=== PATIENT | female | born 1990 | race Caucasian/White ===

== ENCOUNTER 2018-12-19 13:27 | Inpatient (IN) | payer BC ==
[2018-12-19 14:17] LABS: APPEARANCE,URINE CLOUDY; BILIRUBIN,URINE NEGATIVE (NEGATIVE); COLOR,URINE RED; GLUCOSE, URINE 50 mg/dL (NEGATIVE); KETONES,URINE TRACE mg/dL (NEGATIVE); LEUKOCYTE ESTERASE,URINE NEGATIVE (NEGATIVE); NITRITE,URINE NEGATIVE (NEGATIVE); PROTEIN,URINE 100 mg/dL (NEGATIVE); URINE SPECIFIC GRAVITY 1.019; UROBILINOGEN,URINE NEGATIVE mg/dL (<2.0)
[2018-12-19 14:46] LABS: URINE AMPHETAMINES SCREEN NEGATIVE; URINE BARBITURATES SCREEN NEGATIVE; URINE BENZODIAZEPINES SCREEN NEGATIVE; URINE COCAINE SCREEN NEGATIVE; URINE MARIJUANA (THC) SCREEN NEGATIVE; URINE METHADONE SCREEN NEGATIVE; URINE PHENCYCLIDINE SCREEN NEGATIVE
[2018-12-19 15:11] LABS: ABSOLUTE EOSINOPHILS # (AUTO) 0.1 10^3/uL (0.0-0.6); ABSOLUTE LYMPHOCYTES (AUTO) 1.4 10^3/uL (0.5-4.7); ABSOLUTE MONOCYTES (AUTO) 0.6 10^3/uL (0.1-1.4); ABSOLUTE NEUT (AUTO) 6.2 10^3/uL (1.7-8.2); BASOPHILS % (AUTO) 0.5 % (0-2); EOSINOPHILS % (AUTO) 0.7 % (0-6); HEMOGLOBIN 13.3 g/dL (12.0-15.5); LYMPHOCYTES % (AUTO) 16.4 % (13-45); MEAN CORPUSCULAR HEMOGLOBIN 31.5 pg (27.0-33.4); MEAN CORPUSCULAR HGB CONC 34.9 g/dL (32.0-36.0); MEAN CORPUSCULAR VOLUME 90 fl (80-97); MONOCYTES % (AUTO) 7.7 % (3-13); PLATELET COUNT 144 10^3/uL (150-450); RED BLOOD COUNT 4.21 10^6/uL (3.72-5.28); RED CELL DISTRIBUTION WIDTH 13.3 % (11.5-14.0); SEGMENTED NEUTROPHILS % (AUTO) 74.7 % (42-78); TOTAL CELLS COUNTED % (AUTO) 100 %; WHITE BLOOD COUNT 8.3 10^3/uL (4.0-10.5)
[2018-12-19] MEDS ORDERED: EPHEDRINE SULFATE INJ 50 MG/1 ML AMPULE ONE (15:28)
[2018-12-19] MEDS ORDERED: FENTANYL CITRATE INJ/PF 100 MCG/2 ML AMPUL ONE (15:28)
[2018-12-19] MEDS ORDERED: MISOPROSTOL 0.2 MG TABLET ONE (15:28)
[2018-12-19] MEDS ORDERED: PHENYLEPHRINE HCL INJ/PF 10 MG/1 ML SDV ONE (15:28)
[2018-12-19] MEDS ORDERED: BUPIVACAINE HCL 0.25 % INJ/PF (2.5 MG/1 ML) 30 ML VIAL ONE (15:29)
[2018-12-19] MEDS ORDERED: OXYTOCIN/NORMAL SALINE 20 UNIT/1,000 ML RTUINJ ONE (15:29)
[2018-12-19] MEDS ORDERED: LIDOCAINE 1% INJ-PF (10 MG/ML) 30 ML SDV ONE (15:29)
[2018-12-19] MEDS ORDERED: FENTANYL/BUPIVACAINE/NS/PF 300 MCG/150 ML RTUINJ EPI ONE (15:29)
[2018-12-19] MEDS ORDERED: RINGERS SOLUTION 1,000 ML IV PRN ×2 (15:30)
--- NOTE | 2018-12-19 15:56 | Admission Physical ---
Datetime Report Generated by CPN: 12/19/2018 15:56 CURRENT ADMISSION Chief Complaint: Uterine Contractions Indication for Induction: Not Applicable Admit Impression : Term, Intrauterine ; Active Labor Admit Plan: Admit to Unit; Initiate Labor Protocol ALLERGIES Medication Allergies: No Medication Allergies: shellfish derived/SV/Anaphylaxis (12/19/2018) Latex: No Latex Allergies Food Allergies: Shellfish--anaphylaxis Environmental Allergies: Seasonal OBSTETRICAL HISTORY EDC: 12/28/2018 00:00 : 1 Para: 0 Term: 0 : 0 SAB: 0 IAB: 0 Ectopic: 0 Livin Cesareans: 0 VBACs: 0 Multiple Births: 0 Gestational Diabetes: No Rh Sensitization: No Incompetent Cervix: No SANDRA: No Infertility: No ART Treatment: No Uterine Anomaly: No IUGR: No Hx Previous C/S: No Macrosomia: No Hx Loss/Stillborn: No PIH: No Hx : No Placenta Previa/Abruption: No Depression/PP Depression: No PTL/PROM: No Post Hemorrhage: No Current Procedures: Ultrasound Obstetrical History Comments: G1 current SEE RECORDS Alcohol: No Marijuana : No Cocaine: No Other Illicit Drugs: No Cigarettes: Never Smoker. [id number] MEDICAL HISTORY Diabetes: No Blood Transfusion: No Pulmonary Disease (Asthma, TB): Yes Breast Disease: No Hypertension: No Tube Backer Surgery: No Heart Disease: No Hosp/Surgery: No Autoimmune Disorder: No Anesthetic Complications: No Kidney Disease: No Abnormal Pap Smear: No Neuro/Epilepsy: No Psychiatric Disorders: No Other Medical Diseases: No Hepatitis/Liver Disease: No Significant Family History: No Varicosities/Phlebitis: No Trauma/Violence : No Thyroid Dysfunction: No Medical History Comments: pt with R hip abnormality INFECTIOUS HISTORY Gonorrhea: No Genital Herpes: No Chlamydia: No Tuberculosis: No Syphilis: No Hepatitis: No HIV/AIDS Exposure: No Rash or Viral Illness: No HPV: No PHYSICAL EXAM General: Normal HEENT: Normal Neurologic: Normal Thyroid: Normal Heart: Normal Lungs: Normal Breast: Deferred Back: Normal Abdomen: Normal Genitourinary Exam: Normal Extremities: Normal DTRs: Normal Pelvic Type: Adequate Vital Signs: Reviewed VAGINAL EXAM Dilatation: 4 Effacement: 90 Station: -1 MEMBRANES Membranes: Intact FETUS A EGA: 38.5 Monitoring: External US FHR- Baseline: 120 Variability: Moderate 6-25bpm Decelerations: None FHR Category: Category I Admit Comment: admit and may have epidural INFORMED CONSENT Signature: with User ID: [email or web address]
[2018-12-19] MEDS ORDERED: FENTANYL CITRATE INJ/PF 100 MCG/2 ML AMPUL EPI ONE (16:25)
[2018-12-19] MEDS ORDERED: BENZOIN/ALOE VERA/STORAX/TOLU TINCTURE 60 ML TP PRN (16:32)
[2018-12-19] MEDS ORDERED: EPHEDRINE SULFATE INJ 50 MG/1 ML AMPULE IV PRN (16:32)
[2018-12-19] MEDS ORDERED: FENTANYL/BUPIVACAINE/NS/PF 200 MCG/100 ML RTUINJ EPI PRN (16:32)
[2018-12-19] MEDS ORDERED: BUPIVACAINE HCL 0.25 % INJ/PF (2.5 MG/1 ML) 30 ML VIAL INFIL ONE (16:32)
[2018-12-19] MEDS ORDERED: DIPHENHYDRAMINE HCL 25 MG CAPSULE PO PRN (21:44)
[2018-12-19] MEDS ORDERED: PROMETHAZINE HCL INJ 25 MG/1 ML VIAL IV PRN (21:44)
[2018-12-19] MEDS ORDERED: BENZOCAINE/MENTHOL AEROSOL SPRAY 56 ML TOP PRN (21:44)
[2018-12-19] MEDS ORDERED: NA PHOS,M-B/NA PHOS,DI-BA (ADULT) 133 ML ENEMA PR PRN (21:44)
[2018-12-19] MEDS ORDERED: MEASLES,MUMPS&RUBELLA VACC/PF 0.5 ML VIAL SUBCUT PRN (21:44)
[2018-12-19] MEDS ORDERED: PSEUDOEPHEDRINE HCL 30 MG TABLET PO PRN (21:44)
[2018-12-19] MEDS ORDERED: OXYTOCIN/NORMAL SALINE 20 UNIT/1,000 ML RTUINJ IV PRN (21:44)
[2018-12-19] MEDS ORDERED: ACETAMINOPHEN 650 MG SUPP.RECT PR PRN (21:44)
[2018-12-19] MEDS ORDERED: GLYCERIN/WITCH HAZEL LEAF 1 EACH MED..WIPE TP PRN (21:44)
[2018-12-19] MEDS ORDERED: PROMETHAZINE HCL 25 MG SUPP.RECT PR PRN (21:44)
[2018-12-19] MEDS ORDERED: DIBUCAINE 1% OINTMENT 56 GM TP PRN (21:44)
[2018-12-19] MEDS ORDERED: MAGNESIUM HYDROXIDE SUSP 30 ML UDCUP PO PRN (21:44)
[2018-12-19] MEDS ORDERED: DIPH/PERTUSS(ACELL)/TETANUS VAC/PF 0.5 ML SYR (>=10YO) IM PRN (21:44)
[2018-12-19] MEDS ORDERED: PROMETHAZINE HCL 25 MG TABLET PO PRN (21:44)
[2018-12-19] MEDS ORDERED: ACETAMINOPHEN WITH CODEINE #3 TABLET PO PRN ×2 (21:44)
[2018-12-19] MEDS ORDERED: ZOLPIDEM TARTRATE 5 MG TABLET PO PRN (21:44)
[2018-12-20] MEDS: IBUPROFEN 800 MG TABLET PO SCH ×4 (00:04→21:08)
[2018-12-20] MEDS: FAMOTIDINE 20 MG TABLET PO SCH ×3 (00:05→21:08)
--- NOTE | 2018-12-20 00:23 | Delivery Summary ---
Del Sum A-C Datetime Report Generated by CPN: 12/20/2018 00:22 DELIVERY PERSONNEL DELIVERY PERSONNEL: [id number] Delivery Doctor:: Noel Baker MD Labor and Delivery Nurse:: Ronel Ellington, cashier Nurse:: Vandana Rodriguez, ERVIN MATERNAL INFORMATION Delivery Anesthesia: Epidural Medications After Delivery: Pitocin Drip 20 Units/1000ml NSS; Cytotec 1000mcg Per Rectum/Vagina Delivery QBL: 50 Maternal Complications: None LABOR SUMMARY EDC: 12/28/2018 00:00 No. Babies in Womb: 1 Attempted: No Labor Anesthesia: Epidural LABOR INFORMATION Reason for Induction: Not Applicable Onset of Labor: 12/19/2018 11:30 Complete Dilatation: 12/19/2018 20:49 Oxytocin: N/A Group B Beta Strep: negative Antibiotics # of Doses: 0 Antibiotics Time of Last Dose: N/A Name of Antibiotic Given: N/A Steroids Given: None Reason Steroids Not Administered: Not Applicable MEMBRANES Membranes Rupture Method: Artificial Rupture of Membranes: 12/19/2018 18:02 Length of Rupture (hr): 3.08 Amniotic Fluid Color: Clear Amniotic Fluid Amount: Large Amniotic Fluid Odor: Normal STAGES OF LABOR Stage 1 hr: 9 Stage 1 min: 19 Stage 2 hr: 0 Stage 2 min: 18 Stage 3 hr: 0 Stage 3 min: 10 Total Time in Labor hr: 9 Total Time in Labor min: 47 VAGINAL DELIVERY Episiotomy: None Laceration #1: Vaginal Laceration Extension #1: First Degree Laceration #2: Periurethral Laceration Extension #2: First Degree Laceration #3: None Laceration Extension #3: N/A Laceration Repair: Yes Laceration Repair Note: a small vaginal lac and small perineal lac repaired with one 3-0 chromic suture Sponge Count Correct: N/A Sharps Count Correct: N/A CSECTION DELIVERY Primary Indication: N/A Secondary Indication: N/A CSection Incidence: N/A Labor: N/A Elective: N/A BABY A INFORMATION Delivery Date/Time: 12/19/2018 21:07 Method of Delivery: Vaginal Born in Route : No : N/A Forceps: N/A Vacuum Extraction: N/A Shoulder Dystocia : No PRESENTATION/POSITION BABY A Presentation: Cephalic Cephalic Presentation: Vertex Vertex Position: Right Occipital Anterior Breech Presentation: N/A PLACENTA INFORMATION BABY A Placenta Delivery Time : 12/19/2018 21:17 Placenta Method of Delivery: Spontaneous Placenta Status: Delivered SCORES BABY A Heart Rate 1 min: >100 bpm Resp Effort 1 min: Good Cry Reflex Irritability 1 min: Cough or Sneeze or Pulls Away Muscle Tone 1 min: Active Motion Color 1 min: Blue/Pale SCORE 1 MIN: 8 Heart Rate 5 min: >100 bpm Resp Effort 5 min: Good Cry Reflex Irritability 5 min: Cough or Sneeze or Pulls Away Muscle Tone 5 min: Active Motion Color 5 min: Body [place], Extremities Blue Resuscitation Effort 5 min: Tactile Stimulation SCORE 5 MIN: 9 INFANT INFORMATION BABY A Gestational Age at Delivery: 38.5 Gestational Status: Early Term- 37- 38.6 Weeks Outcome : Liveborn Condition : Stable Infant Sex: Female IDENTIFICATION BABY A ID Band Number: [id number] Mother's Name Verified: Yes Infant RN Verifying Infant: Anyi [email or web address] RN Additional Verifying Personnel: Telma Devi RN WEIGHT/LENGTH BABY A Birthweight (gm): 3175 Weight (lb): 7 Weight (oz): 0 Length (in): 19.00 Infant Length (cm): 48.26 CORD INFORMATION BABY A No. Cord Vessels: 3 Nuchal Cord : N/A Cord Blood Taken: Yes-For Storage (Mom's Blood type +) Infant Suction: Mouth; Nose ASSESSMENT BABY A Complications: None Complications- Other: Left compound hand/arm Physical Findings at Delivery: Within Normal Limits Physical Findings- Other: see initial nursery assessment Respirations: Appears Normal Skin to Skin: Yes Skin to Skin Time (min): 60 Control Panel Builder/ALS Called : No Care By: Viki Rodriguez RN Transferred To: Remains with Mother BABY B INFORMATION : N/A SIGNATURES Signature: with User ID: [email or web address]
[2018-12-20 06:03] LABS: HEMATOCRIT 36.8 % (36.0-47.0); HEMOGLOBIN 12.8 g/dL (12.0-15.5); MEAN CORPUSCULAR HEMOGLOBIN 31.6 pg (27.0-33.4); MEAN CORPUSCULAR HGB CONC 34.8 g/dL (32.0-36.0); MEAN CORPUSCULAR VOLUME 91 fl (80-97); PLATELET COUNT 134 10^3/uL (150-450); RED BLOOD COUNT 4.06 10^6/uL (3.72-5.28); RED CELL DISTRIBUTION WIDTH 13.8 % (11.5-14.0); WHITE BLOOD COUNT 10.9 10^3/uL (4.0-10.5)
--- NOTE | 2018-12-20 09:29 | PDOC PROGRESS REPORT ---
Subjective-OB Progress Note for:: 12/20/18 Subjective: Doing well, no c/o, ambulating, bonding with baby Physical Exam (OB) Vital Signs: Temp Pulse Resp BP Pulse Ox 98.2 F 69 16 121/78 98 12/20/18 07:26 12/20/18 07:26 12/20/18 07:26 12/20/18 07:26 12/20/18 07:26 Intake & Output 12/19/18 12/20/18 12/21/18 06:59 06:59 06:59 Weight 87.8 kg - PIH/Pre-Eclampsia Clonus: Negative Headache: Absent Epigastric Pain: No Visual Changes: No - Lochia Lochia Amount: Small 10-25 ml Lochia Color: Rubra/Red - Abdomen Description: Soft Hernia Present: No Fundal Description: Firm Fundal Height: u/u - u/2 Objective-Diagnostic Laboratory: 12/20/18 05:43 12/19/18 12/19/18 12/19/18 13:50 14:43 14:43 WBC 8.3 RBC 4.21 Hgb 13.3 Hct 38.0 MCV 90 MCH 31.5 MCHC 34.9 RDW 13.3 Plt Count 144 L Seg Neutrophils % 74.7 Urine Color RED Urine Appearance CLOUDY Urine pH 6.0 Ur Specific Raymond 1.019 Urine Protein 100 H Urine Glucose (UA) 50 H Urine Ketones TRACE H Urine Blood LARGE H Urine Nitrite NEGATIVE Ur Leukocyte Esterase NEGATIVE Blood Type A POSITIVE Antibody Screen NEGATIVE 12/20/18 05:43 WBC 10.9 H RBC 4.06 Hgb 12.8 Hct 36.8 MCV 91 MCH 31.6 MCHC 34.8 RDW 13.8 Plt Count 134 L Seg Neutrophils % Urine Color Urine Appearance Urine pH Ur Specific Raymond Urine Protein Urine Glucose (UA) Urine Ketones Urine Blood Urine Nitrite Ur Leukocyte Esterase Blood Type Antibody Screen Assessment and Plan(PN) - Assessment and Plan (1) Delivery normal Is this a current diagnosis for this admission?: Yes - Time Spent with Patient Time with patient: Less than 15 minutes Medications reviewed and adjusted accordingly: Yes - Disposition Anticipated Discharge: Home Within: within 24 hours
[2018-12-20] MEDS: PRENATAL VITAMIN W DHA CAPSULE PO SCH (09:42)
[2018-12-20] MEDS: SENNOSIDES/DOCUSATE 8.6-50 MG 1 EACH TABLET PO SCH (09:43)
[2018-12-20] MEDS: DOCUSATE SODIUM 100 MG CAPSULE PO SCH ×2 (09:43→17:06)
[2018-12-20] MEDS: FERROUS SULFATE 325 MG TABLET PO SCH ×2 (09:43→17:06)
[2018-12-21] MEDS: IBUPROFEN 800 MG TABLET PO SCH ×2 (05:06→13:06)
[2018-12-21 08:10] VITALS: BP 119/74
[2018-12-21] MEDS: SENNOSIDES/DOCUSATE 8.6-50 MG 1 EACH TABLET PO SCH (09:12)
[2018-12-21] MEDS: FAMOTIDINE 20 MG TABLET PO SCH (09:12)
[2018-12-21] MEDS: DOCUSATE SODIUM 100 MG CAPSULE PO SCH (09:13)
[2018-12-21] MEDS: FERROUS SULFATE 325 MG TABLET PO SCH (09:13)
[2018-12-21] MEDS: PRENATAL VITAMIN W DHA CAPSULE PO SCH (09:13)
--- NOTE | 2018-12-21 09:34 | PDOC DISCHARGE SUMMARY ---
Final Diagnosis Discharge Date: 12/21/18 - PP Day #2, doing well, no complaints, A+, Rubella Non-Immune, . - Final Diagnosis (1) Normal course Is this a current diagnosis for this admission?: Yes (2) Delivery normal Is this a current diagnosis for this admission?: Yes Discharge Data - Discharge Medication Prescriptions: Ibuprofen [Motrin 800 mg Tablet] 800 mg PO Q8 #60 tablet Home Medications: Vitamin [-U Multiple Vitamin Capsule] 1 tab PO DAILY 12/19/18 Ibuprofen [Motrin 800 mg Tablet] 800 mg PO Q8 #60 tablet 12/21/18 Reason(s) for Admission: Onset of Labor Procedures: Ultrasound Intrapartum Procedure(s): Spontaneous Vaginal Delivery Complication(s): Laceration-Perineal Laceration-Degree: 1st - Diagnosis Test Laboratory: Temp Pulse Resp BP Pulse Ox 98.2 F 70 14 119/74 100 12/21/18 07:53 12/21/18 07:53 12/21/18 07:53 12/21/18 07:53 12/21/18 07:53 12/19/18 12/19/18 12/20/18 13:50 14:43 05:43 RBC 4.21 4.06 Hgb 13.3 12.8 Hct 38.0 36.8 Urine Opiates Screen NEGATIVE - Discharge information/Instructions Discharge Activity: Activity As Tolerated, No Lifting Over 10 Pounds, Pelvic Rest Discharge Diet: As Tolerated, Regular Disposition: HOME, SELF-CARE Follow up with: [facility] in: 4, Weeks
== END 2018-12-21 13:10 | disposition home or self-care (01) | DRG 807 ==
LOC: LC 13:27 → LR 14:33 → 2S 23:49
PROVIDERS: ADMIT Obstetrics & Gynecology; ATTEND Obstetrics & Gynecology
PROC: 10E0XZZ Delivery of Products of Conception, External Approach (ICD-10-PCS; principal; 2018-12-19)
PROC: 0UQMXZZ Repair Vulva, External Approach (ICD-10-PCS; 2018-12-19)
DX: O32.6XX0 Maternal care for compound presentation, not applicable or unspecified (principal); Z37.0 Single live birth; O71.82 Other specified trauma to perineum and vulva; O70.0 First degree perineal laceration during delivery; Z3A.38 38 weeks gestation of pregnancy
CPT/HCPCS: 36415; 80307; 81005; 85025; 85027; 86592; 86850; 86900; 86901; 94760; J2370; J2590; J3010; J3490

== ENCOUNTER 2019-04-06 08:28 | Day surgery (SDC) | payer BC ==
[2019-04-05 11:11] LABS: HEMATOCRIT 42.1 % (36.0-47.0); HEMOGLOBIN 14.6 g/dL (12.0-15.5); MEAN CORPUSCULAR HEMOGLOBIN 30.5 pg (27.0-33.4); MEAN CORPUSCULAR HGB CONC 34.6 g/dL (32.0-36.0); MEAN CORPUSCULAR VOLUME 88 fl (80-97); PLATELET COUNT 190 10^3/uL (150-450); RED BLOOD COUNT 4.78 10^6/uL (3.72-5.28); RED CELL DISTRIBUTION WIDTH 12.7 % (11.5-14.0); WHITE BLOOD COUNT 5.8 10^3/uL (4.0-10.5)
[2019-04-05 11:15] LABS: APPEARANCE,URINE CLEAR; BILIRUBIN,URINE NEGATIVE (NEGATIVE); COLOR,URINE YELLOW; GLUCOSE, URINE NEGATIVE (NEGATIVE); KETONES,URINE NEGATIVE (NEGATIVE); LEUKOCYTE ESTERASE,URINE TRACE (NEGATIVE); NITRITE,URINE NEGATIVE (NEGATIVE); PROTEIN,URINE NEGATIVE (NEGATIVE); URINE SPECIFIC GRAVITY 1.013; UROBILINOGEN,URINE NEGATIVE mg/dL (<2.0)
[~2019-04-06 08:28] MED LIST: LACTATED RINGERS 1000 ML IV PRN; LIDOCAINE 0.5% INJ-PF (5 MG/ML) 50 ML SDV SUBCUT PRN
[2019-04-06] MEDS ORDERED: FENTANYL CITRATE INJ/PF 100 MCG/2 ML AMPUL ONE (08:52)
[2019-04-06] MEDS ORDERED: PROPOFOL INJ 200 MG/20 ML VIAL IV ONE (08:52)
[2019-04-06] MEDS ORDERED: MIDAZOLAM 2 MG/2 ML INJ ONE (08:52)
[2019-04-06] MEDS ORDERED: SUGAMMADEX SODIUM 200 MG/2 ML SDV IV ONE (12:02)
[2019-04-06] MEDS ORDERED: MORPHINE SULFATE 10 MG/ML INJ IV PRN (12:05)
[2019-04-06] MEDS ORDERED: DIPHENHYDRAMINE HCL 50 MG/ML VIAL IV PRN (12:05)
[2019-04-06] MEDS ORDERED: ONDANSETRON HCL INJ/PF 4 MG/2 ML SDV IV PRN (12:05)
[2019-04-06] MEDS ORDERED: MEPERIDINE HCL/PF INJ 25 MG/1 ML DISP.SYRIN IV PRN (12:05)
[2019-04-06] MEDS ORDERED: PROMETHAZINE HCL INJ 25 MG/1 ML VIAL IV PRN ×2 (12:05)
[2019-04-06] MEDS ORDERED: FENTANYL CITRATE INJ/PF 100 MCG/2 ML AMPUL IV PRN ×3 (12:05)
[2019-04-06] MEDS ORDERED: OXYCODONE-ACETAMINOPHEN 5-325 MG TABLET PO PRN ×4 (12:05→12:15)
[2019-04-06] MEDS ORDERED: IBUPROFEN 800 MG TABLET PO PRN (12:15)
[2019-04-06] MEDS ORDERED: RINGERS SOLUTION,LACTATED 1,000 ML IV PRN (12:15)
[2019-04-06] MEDS ORDERED: KETOROLAC TROMETHAMINE INJ/PF 30 MG/1 ML SDV IV PRN (12:15)
--- NOTE | 2019-04-06 12:20 | Operative Report ---
Operative Report DATE OF SURGERY: 04/06/19 PREOPERATIVE DIAGNOSIS: Left ovarian cyst which is simple in appearance but lar ge enough to be bothering the patient. POSTOPERATIVE DIAGNOSIS: Same OPERATION: Laparoscopy with drainage of the left ovarian cyst SURGEON: ANDRIY FLORES ANESTHESIA: GA TISSUE REMOVED OR ALTERED: Left ovary COMPLICATIONS: None ESTIMATED BLOOD LOSS: 10 cc INTRAOPERATIVE FINDINGS: Large simple appearing left ovarian cyst. There is a normal right ovary. PROCEDURE: Patient was taken the OR and placed in supine position. General anesthesia was induced. She was placed in a supine position her abdomen was prepared and draped in a sterile fashion. She had voided prior to the procedure and did not need catheterization. An incision was made at the umbilicus and natural umbilical defect was dilated with Letitia clamp allowing a blunt port to be placed. Laparoscopy confirmed appropriate placement. A suprapubic port was placed under laparoscopic visualization and a left lateral port placed under laparoscopic visualization. Left ovary was easily visible and enlarged. It was elevated up out of the pelvis with a grasper and an incision was made with cautery and jg which drained the ovarian cyst. Straw-colored clear fluid was drained out. Using the LigaSure device a large section of the cyst wall was removed and sent for specimen. The internal cyst wall was very smooth. The fluid was suctioned out of the pelvis using the gas plumber aspirator. Hemostasis was quite good. Next the ports were removed under laparoscopic visualization. The gas was allowed to escape from the abdomen. The umbilical port and scope were removed at the same time. All 3 port sites were closed at the skin with a 4-0 undyed Vicryl stitch. She was extubated in the OR and taken recovery room in stable condition.
--- NOTE | 2019-04-06 12:24 | Discharge Summary ---
Discharge Summary (SDC) - Discharge Final Diagnosis: Simple left ovarian cyst. Date of Surgery: 04/06/19 Discharge Date: 04/06/19 Condition: Good Prescriptions: Oxycodone HCl/Acetaminophen [Percocet 5-325 mg Tablet] 1 tab PO Q4HP PRN #20 tablet PRN Reason: Ibuprofen [Motrin 800 mg Tablet] 800 mg PO BIDP PRN #30 tablet PRN Reason: Discharge Diet: Regular Discharge Activity: Pelvic Rest, Slowly Increase Activity Report the Following to Your Physician Immediately: Shortness of Breath, Fever over 101 Degrees
[2019-04-06] MEDS: FENTANYL CITRATE INJ/PF 100 MCG/2 ML AMPUL ONE ×2 (12:25→12:30)
[2019-04-06] MEDS ORDERED: ACETAMINOPHEN 1,000 MG/100 ML RTUPB IV ONE (12:45)
[2019-04-06] MEDS ORDERED: OXYCODONE-ACETAMINOPHEN 5-325 MG TABLET ONE (13:22)
[2019-04-06] MEDS ORDERED: ONDANSETRON HCL INJ/PF 4 MG/2 ML SDV ONE (13:58)
[2019-04-06] MEDS ORDERED: VECURONIUM BROMIDE INJ 10 MG VIAL IV ONE (13:58)
[2019-04-06] MEDS ORDERED: GLYCOPYRROLATE 1 MG/5 ML VIAL ONE (13:58)
[2019-04-06] MEDS ORDERED: ROCURONIUM BROMIDE INJ 50 MG/5 ML VIAL IV ONE (13:58)
[2019-04-06] MEDS ORDERED: DEXAMETHASONE SOD PHOSPHATE INJ 4 MG/1 ML VIAL ONE (13:58)
[2019-04-06] MEDS ORDERED: KETOROLAC TROMETHAMINE 60 MG/2 ML SDV ONE (13:58)
[2019-04-06 15:43] VITALS: BP 111/80
== END 2019-04-06 14:25 | disposition home or self-care (01) ==
LOC: OROUT 08:28
PROVIDERS: ATTEND Obstetrics & Gynecology
DX: N83.202 Unspecified ovarian cyst, left side (principal); J45.909 Unspecified asthma, uncomplicated; Z79.51 Long term (current) use of inhaled steroids
CPT/HCPCS: 36415; 85027; 81005; 81025; 88305 ×2; 00840; 49322; J2250; J3490 ×4; J1100; J1885; J3010; J2405; J2704; J0131; 840